=== PATIENT | male | born 1945 | race Caucasian/White ===

== ENCOUNTER 2022-12-30 07:30 | Inpatient (IN) ==
[2022-12-17 18:25] LABS: Basophils # (Auto) 0.04 K/mcL (0.00-0.30); Basophils % (Auto) 0.4 % (0.0-2.0); Eosinophils # (Auto) 0.15 K/mcL (0.00-0.70); Eosinophils % (Auto) 1.5 % (0.0-7.0); Hematocrit 35.5 % (40.1-51.0); Hemoglobin 11.3 g/dL (13.7-17.5); Lymphocytes # (Auto) 1.64 K/mcL (1.50-4.80); Lymphocytes % (Auto) 15.9 % (15.5-49.0); Mean Cell Volume 85.1 fL (80.0-100.0); Mean Corpuscular HGB Conc 31.8 g/dL (31.0-36.0); Mean Platelet Volume 8.7 fL (8.8-12.5); Monocytes # (Auto) 1.03 K/mcL (0.10-0.90); Neutrophils % (Auto) 71.4 % (38.0-78.0); Platelet Count 297 K/mcL (140-440); RBC 4.17 M/mcL (4.63-6.08); Red Cell Distribution Width 16.2 % (11.5-14.5); WBC 10.3 K/mcL (4.5-11.0)
[2022-12-17 18:34] LABS: Appearance,Urine HAZY (Clear); Bilirubin,Urine Negative (Negative); Color,Urine YELLOW; Culture Indicated,Urine No; Glucose,Urine (UA) Negative (Negative); Ketones,Urine Negative (Negative); Leukocyte Esterase,Urine Negative /uL (Negative); Nitrate,Urine Negative (Negative); Protein,Urine Negative (Negative); Specific Gravity,Urine 1.024 (1.000-1.035); Urine Blood Negative (Negative)
[2022-12-17 18:46] LABS: Blood Urea Nitrogen 20 mg/dL (8-23); Calcium 9.5 mg/dL (8.6-10.4); Carbon Dioxide 22 mmol/L (22-30); Chloride 100 mmol/L (96-108); Glomerular Filtration Rate 59; Glucose 117 mg/dL (70-105)
--- NOTE | 2022-12-19 18:20 | EKG ---
[facility] Test Date: 2022-12-17 Pat Name: Leopoldo Cruz Department: [facility] Room: Gender: Male Wafer Substrate Tester: : 1945 Requested By: Kentrell Zaraet Order Number: [id number] Reading MD: Serg Guadarrama Measurements Intervals [place] Rate: 96 P: 26 OR: 156 QRS: 3 QRSD: 76 T: 33 QT: 326 QTc: 413 Interpretive Statements Sinus rhythm Electronically Signed On 12-19-2022 18:19:41 PDT by Serg Guadarrama /[email or web address]/[email or web address]/[id number]
[~2022-12-30 07:30] MED LIST: 0.9 % SODIUM CHLORIDE 9 ML, KETOROLAC 30 MG, ROPIVACAINE HCL/PF 49.5 ML, EPINEPHrine 0.... IJ SCH; ACETAMINOPHEN 500 MG TABLET PO SCH; CELECOXIB 200 MG CAPSULE PO SCH; PREGABALIN 75 MG CAPSULE PO SCH; ceFAZolin 2 GM in DEXTROSE 5% IN WATER 50 ML IV SCH; oxyCODONE 10 MG TAB.ER.12H PO SCH
[2022-12-30] MEDS ORDERED: IPRATROPIUM/ALBUTEROL 3 ML AMPUL.NEB NEB PRN ×2 (09:00→12:18)
[2022-12-30] MEDS ORDERED: SCOPOLAMINE 1 PATCH PATCH TOPICAL PRN (09:00)
[2022-12-30] MEDS ORDERED: TRANEXAMIC ACID 1,000 MG/10 ML VIAL ONE (11:02)
[2022-12-30] MEDS ORDERED: LIDOCAINE HCL/PF 100 MG/5 ML SYRINGE IV ONE (11:02)
[2022-12-30] MEDS ORDERED: PROPOFOL 200 MG/20 ML VIAL IV ONE (11:02)
[2022-12-30] MEDS ORDERED: KETAMINE 50 MG/ML Syringe (ANEST) IV ONE (11:02)
[2022-12-30] MEDS ORDERED: DEXAMETHASONE 10 MG/ML VIAL ONE (11:02)
[2022-12-30] MEDS ORDERED: PHENYLephrine 1 MG/10 ML SYRINGE (ANEST) ONE (11:02)
[2022-12-30] MEDS ORDERED: ROPIVACAINE HCL/PF 20 ML VIAL IJ ONE (11:02)
[2022-12-30] MEDS ORDERED: MAGNESIUM SULFATE 2 GM/50 ML BAG IV ONE (11:02)
[2022-12-30] MEDS ORDERED: ONDANSETRON 4 MG/2 ML VIAL ONE (11:02)
[2022-12-30] MEDS ORDERED: ePHEDrine 50 MG/5 ML SYRINGE (ANEST) IV ONE (11:02)
[2022-12-30] MEDS ORDERED: fentaNYL 100 MCG/2 ML VIAL IV PRN (12:18)
[2022-12-30] MEDS ORDERED: ONDANSETRON 4 MG/2 ML VIAL IV PRN ×2 (12:18→12:24)
[2022-12-30] MEDS ORDERED: MEPERIDINE 25 MG/ML VIAL IV PRN (12:18)
[2022-12-30] MEDS ORDERED: PROMETHAZINE 25 MG/ML VIAL IV PRN (12:18)
[2022-12-30] MEDS ORDERED: diphenhydrAMINE 50 MG/ML VIAL IV PRN (12:18)
[2022-12-30] MEDS ORDERED: NALOXONE HCL 0.4 MG/ML VIAL IV PRN (12:18)
[2022-12-30] MEDS ORDERED: LACTATED RINGERS 250 ML IV PRN (12:18)
[2022-12-30] MEDS ORDERED: ACETAMINOPHEN 1,000 MG/100 ML BAG IV ONE (12:18)
[2022-12-30] MEDS ORDERED: METHOCARBAMOL 1,000 MG/10 ML VIAL IV PRN (12:18)
[2022-12-30] MEDS ORDERED: HYDROmorphone 1 MG/ML SYRINGE IV PRN (12:24)
[2022-12-30] MEDS ORDERED: TEMAZEPAM 15 MG CAPSULE PO PRN (12:24)
[2022-12-30] MEDS ORDERED: MAGNESIUM HYDROXIDE 30 ML ORAL.SUSP PO PRN (12:24)
[2022-12-30] MEDS ORDERED: POLYETHYLENE GLYCOL 3350 17 GM PACKET PO PRN (12:24)
[2022-12-30] MEDS ORDERED: FLEETS ADULT ENEMA PR PRN (12:24)
[2022-12-30] MEDS ORDERED: BENZOCAINE/MENTHOL 1 LOZENGE PO PRN (12:24)
[2022-12-30] MEDS ORDERED: BISACODYL 10 MG SUPP.RECT PR PRN (12:24)
[2022-12-30] MEDS ORDERED: ACETAMINOPHEN 325 MG TABLET PO PRN (12:24)
[2022-12-30] MEDS ORDERED: TRANEXAMIC ACID 1,000 MG/10 ML VIAL IV ONE (12:24)
--- NOTE | 2022-12-30 12:24 | Brief Operative Note ---
Brief Operative Note Date of procedure: 12/30/22 Pre-op diagnosis: left knee djd and contracture Post-op diagnosis: same Procedure: left tka Grafts/Implants: Yes Anesthesia: GETA Findings: contracture 40 degree Complications: none Surgeon: Joseph Friedman Cloth Examiner: Ángel Robert Estimated blood loss (cc): 24 Tourniquet Time (Minutes): 42 Specimens Removed/Pathology: none sent Condition: stable Disposition: PACU
[2022-12-30] MEDS ORDERED: LACTATED RINGERS 1,000 ML IV SCH (12:30)
--- NOTE | 2022-12-30 12:40 | Discharge Plan ---
Discharge Instructions - TKA Patient Instructions Total Knee Protocol: For Total Knee: Start ROM JOSE RAUL with stationary bike or rocking chair. Work on gaining full extension of knee. Posterior dislocation precautions provided. Hip abductor strengthening and gait training instructions provided. Apply Cryocuff as instructed. Additional Dressing Instructions: Leave Zip line closure patch intact until followup --May shower at anytime. Discharge Plan Patient/Caregiver Discharge Instructions Activity: ambulate only with your walker and as per physical therapy Diet: Regular Diet Prescriptions: New hydrocodone-acetaminophen 10-325 mg tablet 1 - 2 tab PO Q4H PRN (Reason: pain) Qty: 75 0RF aspirin [Ecotrin Low Strength] 81 mg tablet,delayed release (DR/EC) 81 mg PO BID Qty: 60 0RF docusate sodium 100 mg capsule 100 mg PO BID Qty: 60 0RF Other Ambulatory Orders: CPM Discharge Order (ONCE) Location: None Selected Ordered By: Ángel Robert Physical Therapy DC - TKA (Routine) Location: None Selected Ordered By: Ángel Robert Toilet Riser Discharge Order (ONCE) Location: None Selected Ordered By: Ángel Robert Walker (ONCE) Location: None Selected Ordered By: Ángel Robert Prescription drug monitoring program results: PDMP reviewed and no issues identified Follow Up Plan Follow up with: Joseph Friedman MD [Physician] - 01/14/23 1:00 pm Ángel Robert PA-C [Physician Landscaping Supervisor] - Patient Disposition: Home, Self-Care Prognosis: Good Rehab Potential: Good I certify that the patient requires SNF services: No Overall status at discharge: patient is progressing back to baseline Discharge Orders: Discharge Order (Routine); Ordered 12/31/22 Ordered By: Ángel Robert
--- NOTE | 2022-12-30 12:48 | Operative Note ---
DATE OF OPERATION: 12/30/2022 DATE OF PROCEDURE: 12/30/2022 PREOPERATIVE DIAGNOSIS: Left knee degenerative arthritis with contracture. POSTOPERATIVE DIAGNOSIS: Left knee degenerative arthritis with contracture. PROCEDURE: Left total knee arthroplasty. SURGEON: Joseph Friedman M.D. NEEDLE SETTER: Ángel Robert PA-C. This providers expertise and technical skill were required throughout the case. The PA assisted with preoperative coordination, intraoperative retraction, wound closure, and dressing and splint application, as well as postoperative documentation and care coordination. ANESTHESIA: General LMA anesthesia. TOURNIQUET TIME: 42 minutes. IMPLANTS: Size 5 cementless femur, size 5 tibial baseplate with a 9 mm deep dish poly. DESCRIPTION OF PROCEDURE: The patient was brought to the operating room, put to sleep with general LMA anesthesia. Once asleep, the patient had the left leg sterilely prepped and draped. Once this was confirmed as the operative site by initials, consent form, and x-rays the case proceeded. We confirmed that preoperative antibiotics and tranexamic acid had been given, Ioban being placed over the skin. After being sterilely prepped and draped, we made a midline incision, a midvastus approach was performed. We inspected the knee showing a large contracture of about 40 degrees. He was very rigid in extension. He had about 12 degrees of varus malalignment. We then made a midline incision, midvastus approach, placed intramedullary guide phong in the femur, made our distal femoral cut and our chamfer cuts at 10 mm, which is +2 from a standard because of his contracture. We made the tibial cut 2 mm below the most involved side medially. We then removed the bony fragments and tapped into place the tibial baseplate. This was punched into place. We trialed the size 9 deep dish poly with a size 5 femur, which was trialed. He still maintained about 10 degrees of flexion contracture. We recut the distal cut 2 more millimeters from the initial, for a total of 4 off the distal femur. This brought the patient within a few degrees, about 4-5 degrees from full extension. We used the VeraSense sensor to show pressures throughout the joint and it ranged from 11 mm to as high as 60 in full extension. We irrigated thoroughly, placed a size 5 femur, size 5 tibial baseplate with a 9 mm deep dish poly. The patella was resurfaced measuring 26 mm, was cut to 16 mm and we placed a 38 mm cementless patella. This was pressed into place and we took the knee through the full arc of motion. The tourniquet was deflated at 42 minutes. The knee regained full flexion, -5 degrees in extension. Blood loss 42 mL. We irrigated thoroughly, closed the midvastus approach with #1 Stratafix x2, closed the skin with Stratafix and adhesive closure. RBH:catrina Job ID: [id number] Doc ID: [id number] Joseph Friedman MD
--- NOTE | 2022-12-30 13:27 | XRay Report ---
INDICATION: Post-Op Total Knee TECHNIQUE: AP and lateral COMPARISON: AP and crosstable lateral left knee FINDINGS:Status post left total knee arthroplasty. Prosthetic components are in anatomic positions. There is postsurgical soft tissue and intra-articular gas IMPRESSION: Left total knee arthroplasty Interpreted and Authenticated by: Herbert Donald 12/30/22
[2022-12-30] MEDS: 0.9 % SODIUM CHLORIDE 10 ML SYRINGE IV SCH ×2 (14:15→20:54)
[2022-12-30] MEDS: 0.45 % SODIUM CHLORIDE 1,000 ML IV SCH (14:16)
[2022-12-30] MEDS: ceFAZolin 1 GM VIAL IV SCH (18:35)
[2022-12-30] MEDS: SENNOSIDES 1 TABLET PO SCH (21:03)
[2022-12-30] MEDS: ASPIRIN 81 MG TAB.CHEW PO SCH (21:03)
[2022-12-30] MEDS: DOCUSATE SODIUM 100 MG CAPSULE PO SCH (21:03)
[2022-12-31] MEDS: 0.45 % SODIUM CHLORIDE 1,000 ML IV SCH ×2 (00:49→10:36)
[2022-12-31] MEDS: ceFAZolin 1 GM VIAL IV SCH (02:15)
[2022-12-31] MEDS: 0.9 % SODIUM CHLORIDE 10 ML SYRINGE IV SCH ×3 (05:31→21:24)
--- NOTE | 2022-12-31 06:43 | Orthopedic Progress Note ---
SUBJECTIVE Subjective Patient information: Note initiated : 12/31/22 at 6:42 am Service Date, if different from initiated Date: [] Patient: Leopoldo Cruz 77 y/o M admitted on 12/30/22 for Left Total Knee Arthroplasty. Chief Complaint: [Pt is stable this morning on post operative day without any significant concerns or complaints. Patients vital signs have remained stable. Patients dressing is dry and is grossly intact from a neurovascular and motor standpoint. Patients 10 point ROS is otherwise negative. ] Constitutional Vitals: Vital Signs Temp Pulse Resp BP Pulse Ox O2 Del Method O2 Flow Rate 97.2 F 80 14 127/84 97 Room Air 2 12/31/22 02:51 12/31/22 02:51 12/31/22 02:51 12/31/22 02:51 12/31/22 05:00 12/31/22 05:00 12/30/22 17:00 Period Temp Pulse Resp BP Sys/Bedolla Pulse Ox O2 Del Method O2 Flow Rate Last 24 Hr 96.2 F-97.7 F 80-108 11-24 110-149/69-95 89-100 Nasal Cannula- Room Air 1-4 Intake and Output 12/30/22 12/31/22 12/31/22 19:59 03:59 11:59 Intake Total 1750 1465 Output Total 575 200 Balance 1175 1265 Weight 200 lb 9.6 oz Intake & Output: Intake & Output 12/30/22 12/31/22 12/31/22 19:59 03:59 11:59 Intake Total 1750 1465 Output Total 575 200 Balance 1175 1265 Weight 200 lb 9.6 oz Intake: IV 50 1000 Sodium Chloride 0.45% 1,000 ml 1000 @ 100 mls/hr IV .Q10H MCIHELLE Rx#: [id number] Ancef 2 gm In Dextrose 5% in 50 Water 50 ml @ 100 mls/hr IV PREOP MICHELLE Rx#:[id number] Oral 465 IV - Manual Only 1700 Output: Urine Catheter Amount 575 Void Amount 200 Other: Urine Appearance Clear Clear Urine Color Yellow Bright Yellow Urine Odor Normal Normal # Unmeasured Emesis 2 Extremities Exam Extremities exam: Present normal capillary refill, normal inspection, Foot pink and warm and neurovascular intact OBJ DATA Labs 12/17/22 15:29 12/17/22 15:29 Meds: Medications Acetaminophen (Acetaminophen 325 Mg Tablet) 650 mg PO Q6HP PRN; Protocol PRN Reason: Per Pain Protocol/Fever > 101 Hydrocodone Bitart/Acetaminophen (Hydrocodone/Apap 10/325mg Tablet) 1 - 2 tab PO Q4HP PRN; Protocol PRN Reason: Per Pain Protocol Aspirin (Aspirin 81 Mg Tab.Chew) 81 mg PO BID [facility] Last Admin: 12/30/22 21:03 Dose: 81 mg Bisacodyl (Bisacodyl 10 Mg Supp.Rect) 10 mg [place] Q2-3DAYS PRN PRN Reason: Constipation Docusate Sodium (Docusate Sodium 100 Mg Capsule) 100 mg PO BID [facility] Last Admin: 12/30/22 21:03 Dose: 100 mg Hydromorphone HCl (Hydromorphone 1 Mg/Ml Syringe) 0.5 - 2 mg IV Q2HP PRN; Protocol PRN Reason: Per Pain Protocol Sodium Chloride (Sodium Chloride 0.45%) 1,000 mls @ 100 mls/hr IV .Q10H [facility] Last Infusion: 12/31/22 00:49 Dose: Infused Magnesium Hydroxide (Magnesium Hydroxide 30 Ml Oral.Susp) 30 ml PO BIDP PRN PRN Reason: Constipation Ondansetron HCl (Ondansetron 4 Mg/2 Ml Vial) 4 mg IV Q4HP PRN PRN Reason: Nausea And Vomiting Last Admin: 12/30/22 17:16 Dose: 4 mg Polyethylene Glycol (Polyethylene Glycol 3350 17 Gm Packet) 17 gm PO DAILYP PRN PRN Reason: Constipation Senna (Sennosides 1 Tablet) 2 tab PO HS [facility] Last Admin: 12/30/22 21:03 Dose: 2 tab Sodium Biphosphate/Sodium Phosphate (Fleets Adult Enema) 1 dose [place] Q3-4DAYS PRN PRN Reason: Constipation Sodium Chloride (0.9 % Sodium Chloride 10 Ml Syringe) 10 ml IV Q8 [facility] Last Admin: 12/31/22 05:31 Dose: 10 ml Temazepam (Temazepam 15 Mg Capsule) 15 mg PO HSP PRN PRN Reason: Insomnia Throat Lozenges (Benzocaine/Menthol 1 Lozenge) 1 lozenge PO PRN PRN PRN Reason: Sore Throat A/P Narrative A/P Narrative: The patient has been educated regarding dressing care, , restrictions, and follow up appointments. The patient has had all necessary DME prescribed. The patient has remained relatively stable during their hospital course. Time Spent With Patient Time: Total time spent is greater than 50% in coordination of care (as documented) at patient's floor/unit and/or counseling patient: Initial: Total time with patient: Less than 40 minutes Subsequent: Total time with patient: Less than 25 minutes Critical Care Time: No
[2022-12-31] MEDS: DOCUSATE SODIUM 100 MG CAPSULE PO SCH ×2 (08:15→21:23)
[2022-12-31] MEDS: ASPIRIN 81 MG TAB.CHEW PO SCH ×2 (08:15→21:23)
[2022-12-31] MEDS: SENNOSIDES 1 TABLET PO SCH (21:23)
[2023-01-01] MEDS: HYDROcodone/APAP 10/325MG TABLET PO PRN ×3 (03:20→08:23)
[2023-01-01] MEDS: 0.9 % SODIUM CHLORIDE 10 ML SYRINGE IV SCH ×3 (06:05→20:29)
[2023-01-01] MEDS: DOCUSATE SODIUM 100 MG CAPSULE PO SCH ×2 (08:16→20:29)
[2023-01-01] MEDS: ASPIRIN 81 MG TAB.CHEW PO SCH ×2 (08:16→20:29)
--- NOTE | 2023-01-01 16:42 | Orthopedic Progress Note ---
SUBJECTIVE Subjective Patient information: Note initiated : 01/01/23 at 4:38 pm Service Date, if different from initiated Date: [] Patient: eLopoldo Cruz 77 y/o M admitted on 12/30/22 for Left Total Knee Arthroplasty. Chief Complaint: Minimal pain[] Principal diagnosis: left tka Constitutional Vitals: Vital Signs Temp Pulse Resp BP Pulse Ox O2 Del Method O2 Flow Rate 98.8 F 90 10 L 118/84 99 Room Air 2 01/01/23 15:55 01/01/23 15:55 01/01/23 15:55 01/01/23 15:55 01/01/23 15:55 01/01/23 15:55 12/30/22 17:00 Period Temp Pulse Resp BP Sys/Bedolla Pulse Ox O2 Del Method O2 Flow Rate Last 24 Hr 97.5 F-98.8 F 83-96 10-16 115-131/72-91 94-100 Room Air-Room Air Intake and Output 01/01/23 01/01/23 01/01/23 03:59 11:59 19:59 Intake Total 650 1100 150 Output Total 850 850 190 Balance -200 250 -40 Intake & Output: Intake & Output 01/01/23 01/01/23 01/01/23 03:59 11:59 19:59 Intake Total 650 1100 150 Output Total 850 850 190 Balance -200 250 -40 Intake: Oral 650 1100 150 Output: Void Amount 850 850 190 Other: Meal Breakfast Percent of Meal Consumed 100% Feeding Ability Independent Urine Appearance Clear Clear Clear Urine Color Yellow Yellow Yellow # Voids 1 Extremities Exam Extremities exam: Present joint swelling, normal capillary refill and pedal edema OBJ DATA Labs 12/31/22 05:23 12/17/22 15:29 Labs: Abnormal Lab Results 12/31/22 05:23 Hct 33.9 L Meds: Medications Acetaminophen (Acetaminophen 325 Mg Tablet) 650 mg PO Q6HP PRN; Protocol PRN Reason: Per Pain Protocol/Fever > 101 Last Admin: 12/31/22 19:12 Dose: 650 mg Hydrocodone Bitart/Acetaminophen (Hydrocodone/Apap 10/325mg Tablet) 1 - 2 tab PO Q4HP PRN; Protocol PRN Reason: Per Pain Protocol Last Admin: 01/01/23 08:23 Dose: 1 tab Aspirin (Aspirin 81 Mg Tab.Chew) 81 mg PO BID MICHELLE Last Admin: 01/01/23 08:16 Dose: 81 mg Bisacodyl (Bisacodyl 10 Mg Supp.Rect) 10 mg [place] Q2-3DAYS PRN PRN Reason: Constipation Docusate Sodium (Docusate Sodium 100 Mg Capsule) 100 mg PO BID [facility] Last Admin: 01/01/23 08:16 Dose: 100 mg Hydromorphone HCl (Hydromorphone 1 Mg/Ml Syringe) 0.5 - 2 mg IV Q2HP PRN; Protocol PRN Reason: Per Pain Protocol Magnesium Hydroxide (Magnesium Hydroxide 30 Ml Oral.Susp) 30 ml PO BIDP PRN PRN Reason: Constipation Ondansetron HCl (Ondansetron 4 Mg/2 Ml Vial) 4 mg IV Q4HP PRN PRN Reason: Nausea And Vomiting Last Admin: 12/30/22 17:16 Dose: 4 mg Polyethylene Glycol (Polyethylene Glycol 3350 17 Gm Packet) 17 gm PO DAILYP PRN PRN Reason: Constipation Senna (Sennosides 1 Tablet) 2 tab PO HS [facility] Last Admin: 12/31/22 21:23 Dose: 2 tab Sodium Biphosphate/Sodium Phosphate (Fleets Adult Enema) 1 dose [place] Q3-4DAYS PRN PRN Reason: Constipation Sodium Chloride (0.9 % Sodium Chloride 10 Ml Syringe) 10 ml IV Q8 [facility] Last Admin: 01/01/23 14:02 Dose: 10 ml Temazepam (Temazepam 15 Mg Capsule) 15 mg PO HSP PRN PRN Reason: Insomnia Throat Lozenges (Benzocaine/Menthol 1 Lozenge) 1 lozenge PO PRN PRN PRN Reason: Sore Throat A/P Assessment and plan (1) Total knee replacement status: Plan: dc to snf tomorrow Status: Acute Sepsis Sepsis Identified: No Time Spent With Patient Time: Total time spent is greater than 50% in coordination of care (as documented) at patient's floor/unit and/or counseling patient: Subsequent: Total time with patient: Less than 25 minutes Critical Care Time: Yes
[2023-01-01] MEDS: SENNOSIDES 1 TABLET PO SCH (20:29)
[2023-01-02] MEDS: HYDROcodone/APAP 10/325MG TABLET PO PRN (03:55)
[2023-01-02] MEDS: 0.9 % SODIUM CHLORIDE 10 ML SYRINGE IV SCH (05:33)
[2023-01-02] MEDS: ASPIRIN 81 MG TAB.CHEW PO SCH (08:16)
[2023-01-02] MEDS: DOCUSATE SODIUM 100 MG CAPSULE PO SCH (08:16)
== END 2023-01-02 11:00 | DRG 470 ==
LOC: MEDSUR 08:58 → EDSTATUS 10:45
PROVIDERS: ADMIT Orthopaedic Surgery; ATTEND Orthopaedic Surgery